=== PATIENT | female | born 1980 | race Caucasian/White ===

== ENCOUNTER 2017-01-10 19:32 | Emergency (ER) | payer BC, MEDICAID ==
[2017-01-10] MEDS ORDERED: Ondansetron 4 MG/2 ML SDV IVPUSH ONE (20:03)
[2017-01-10] MEDS ORDERED: Ketorolac 30 MG/ML SDV IVPUSH ONE (20:03)
[2017-01-10] MEDS ORDERED: diphenhydrAMINE 50 MG/ML SDV IVPUSH ONE (20:03)
[2017-01-10] MEDS ORDERED: Sodium Chloride 0.9% 1,000 ML IV SCH (20:15)
[2017-01-10 21:24] VITALS: BP 131/67
--- NOTE | 2017-01-10 21:41 | EDM.PDOC ---
ED HPI GENERAL MEDICAL PROBLEM - General Chief Complaint: Headache Stated Complaint: MIGRAINE Time Seen by Provider: 01/10/17 20:00 Source of Information: Reports: Patient History Limitations: Reports: No limitations - History of Present Illness INITIAL COMMENTS - FREE TEXT/NARRATIVE: migraine headache: this is a 36 y/o female presents emergency room with migraine headache for the past 2 days. she has nausea, vomiting, light and sound sensitivity. She reports return from her vacation in [place] for the past week, home Friday, lots of stress, which probably caused a headache. She denies any recent febrile illness, no exposures to strep or flu. Denies . Onset: gradual Onset Date: 01/09/17 Duration: Getting worse Quality: Reports: Same as previous episode Improves with: Reports: Cold therapy, Rest Worsens with: Reports: Movement Context: Reports: Other (migraine headache, similar to previous headaches) Associated Symptoms: Reports: headaches, loss of appetite, nausea/vomiting Headache Pain Score (Numeric/FACES): 1 - Related Data Allergies Allergy/AdvReac Type Severity Reaction Status Date / Time benzonatate Allergy Headache Verified 01/10/17 19:45 [From Derrick Hedz] morphine Allergy Headache Verified 01/10/17 19:45 Penicillins Allergy Rash Verified 01/10/17 19:45 Home Meds: Home Meds NK [No Known Home Meds] 01/10/17 [History] Past Medical History Gastrointestinal History: Reports: Cholelithiasis 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.) Occupation: employed ED ROS GENERAL - Review of Systems Review Of Systems: See Below Constitutional: Reports: other (migraine headache) HEENT: Reports: Eye pain (Light sensitivity) Respiratory: Reports: No Symptoms Cardiovascular: Reports: No symptoms Endocrine: Reports: no symptoms GI/Abdominal: Reports: No symptoms, Decreased appetite (Due to nausea and vomiting), Vomiting : Reports: no symptoms Musculoskeletal: Reports: no symptoms Skin: Reports: no symptoms Neurological: Reports: Headache Psychiatric: Reports: No symptoms Hematologic/Lymphatic: Reports: no symptoms Immunologic: Reports: no symptoms ED EXAM, GENERAL - Physical Exam Exam: See Below Exam Limited By: No limitations General Appearance: alert, WD/WN, moderate distress Eye Exam: bilateral eye: PERRL, other (light-sensitive) Ear Exam: bilateral ear: auricle normal, canal normal, TM normal Nose: normal inspection, normal mucosa, no blood Throat/Mouth: Normal inspection, Normal lips, Normal teeth, Normal gums, Normal oropharynx, Normal voice, No airway compromise Head: atraumatic, normocephalic Neck: normal inspection, supple, non-tender, full range of motion Respiratory/Chest: no respiratory distress, lungs clear, normal breath sounds, no accessory muscle use, chest non-tender Cardiovascular: normal peripheral pulses, regular rate, rhythm, no edema, no gallop, no JVD, no murmur, no rub Peripheral Pulses: 2+: radial (L), radial (R) GI/Abdominal: normal bowel sounds, soft, non tender, no organomegaly, no distention, no abnormal bruit, no mass Extremities: normal inspection, normal range of motion, non-tender, normal capillary refill, no pedal edema Neurological: alert, oriented, CN II-XII intact, normal cognition, normal gait, normal reflexes, no motor/sensory deficits Psychiatric: normal affect, normal mood Skin Exam: Warm, Dry, Intact, Normal color, No rash Lymphatic: no adenopathy Course - Vital Signs Last Recorded V/S: Last Vital Signs Temp 37.1 C 01/10/17 21:23 Pulse 60 01/10/17 21:23 Resp 16 01/10/17 21:23 BP 131/67 01/10/17 21:23 Pulse Ox 99 01/10/17 21:23 - Orders/Labs/Meds Orders: Active Orders 24 hr Category Date Time Status Sodium Chloride 0.9% [Normal Saline] 1,000 ml Med 01/10/17 20:15 Active IV ASDIRECTED Medication Orders Sodium Chloride (Normal Saline) 1,000 mls @ 999 mls/hr IV ASDIRECTED PHAN Last Admin: 01/10/17 20:24 Dose: 999 mls/hr Meds: Medications Generic Name Dose Route Start Last Admin Trade Name Freq PRN Reason Stop Dose Admin Sodium Chloride 1,000 mls @ 999 mls/hr 01/10/17 20:15 01/10/17 20:24 Normal Saline IV 999 mls/hr ASDIRECTED PHAN Administration Discontinued Medications Generic Name Dose Route Start Last Admin Trade Name Beatrice PRN Reason Stop Dose Admin Diphenhydramine HCl 25 mg 01/10/17 20:03 01/10/17 20:13 Benadryl IVPUSH 01/10/17 20:04 25 mg ONETIME ONE Administration Ketorolac Tromethamine 30 mg 01/10/17 20:03 01/10/17 20:13 Toradol IVPUSH 01/10/17 20:04 30 mg ONETIME ONE Administration Ondansetron HCl 4 mg 01/10/17 20:03 01/10/17 20:13 Zofran IVPUSH 01/10/17 20:04 4 mg ONETIME ONE Administration - Re-Assessments/Exams Free Text/Narrative Re-Assessment/Exam: 01/10/17 IV normal saline 1 L IV Toradol 10 mg IV Zofran 4 mg IV Benadryl 25 mg After IV medication and fluids, patient's headache resolved, ready for discharge to home Departure - Departure Time of Disposition: 21:54 Disposition: Home, Self-Care 01 Condition: good Clinical Impression: Migraine Instructions: Recurrent Migraine Headache, [id number] Referrals: PCP,None [Primary Care Provider] - Forms: ED Department Discharge Care Plan Goals: migraine headache -Given Toradol, Benadryl, and Zofran, in ER to relieve the headache -Advised to rest, push fluids, take medications as directed -scripts written for Toradol 10 mg one every 8 hours as needed for pain, Zofran 4 mg every 8 hours as needed for nausea and vomiting -may take [id number] Benadryl 25 mg as needed for headache Return to ER if symptoms return - Problem List & Annotations (1) Migraine SNOMED Code(s): 33874173 Code(s): G43.909 - MIGRAINE, UNSP, NOT INTRACTABLE, WITHOUT STATUS MIGRAINOSUS Status: Acute Priority: High Current Visit: Yes - Problem List Review Problem List Initiated/Reviewed/Updated: Yes - My Orders Last 24 Hours: My Active Orders 01/10/17 20:15 Sodium Chloride 0.9% [Normal Saline] 1,000 ml IV ASDIRECTED - Assessment/Plan Last 24 Hours: My Active Orders 01/10/17 20:15 Sodium Chloride 0.9% [Normal Saline] 1,000 ml IV ASDIRECTED Plan: migraine headache -Given Toradol, Benadryl, and Zofran, in ER to relieve the headache; headache resolved. -Advised to rest, push fluids, take medications as directed -scripts written for Toradol 10 mg one every 8 hours as needed for pain, Zofran 4 mg every 8 hours as needed for nausea and vomiting -may take [id number] Benadryl 25 mg as needed for headache Return to ER if symptoms return
== END 2017-01-10 21:53 | disposition home or self-care (01) ==
LOC: JP.ED 19:32
DX: G43.909 Migraine, unspecified, not intractable, without status migrainosus (principal); Z88.0 Allergy status to penicillin; Z88.5 Allergy status to narcotic agent; Z88.8 Allergy status to other drugs, medicaments and biological substances
CPT/HCPCS: 96361; 96374; 96375; 99283; J1200; J1885; J2405; J7040

== ENCOUNTER 2022-04-21 00:19 | Emergency (ER) | payer OTHER ==
[2022-04-21] MEDS ORDERED: Sodium Chloride 0.9% 10 ML Syringe FLUSH PRN (00:37)
[2022-04-21] MEDS ORDERED: Dexamethasone 4 MG/ML SDV IVPUSH ONE (00:37)
[2022-04-21] MEDS ORDERED: diphenhydrAMINE 50 MG/ML SDV IVPUSH ONE (00:37)
[2022-04-21] MEDS ORDERED: Ketorolac 30 MG/ML SDV IVPUSH ONE (00:37)
[2022-04-21] MEDS ORDERED: Prochlorperazine 10 MG/2 ML SDV IVPUSH ONE (00:37)
[2022-04-21] MEDS ORDERED: Sodium Chloride 0.9% 1,000 ML IV SCH (00:45)
[2022-04-21 00:46] VITALS: BP 125/74; PULSE 57
== END 2022-04-21 02:30 | disposition home or self-care (01) ==
LOC: JP.ED 00:19
DX: G43.119 Migraine with aura, intractable, without status migrainosus (principal); Z88.0 Allergy status to penicillin; Z88.5 Allergy status to narcotic agent; Z88.8 Allergy status to other drugs, medicaments and biological substances
CPT/HCPCS: 96361; 96374; 96375; 99283-25; 99284; J0780; J1100; J1200; J1885; J3490; J7030

== ENCOUNTER 2024-07-12 20:22 | Emergency (ER) | payer OTHER, MEDICAID ==
[2024-07-12 20:41] VITALS: BP 134/87; PULSE 66
[2024-07-12] MEDS: Ondansetron 4 MG Tab.DIS PO ONE (21:03)
[2024-07-12] MEDS: Sodium Chloride 0.9% 1,000 ML IV SCH (21:04)
[2024-07-12] MEDS: diphenhydrAMINE 50 MG/ML SDV IVPUSH ONE (21:11)
[2024-07-12] MEDS: Dexamethasone 4 MG/ML SDV IVPUSH ONE (21:15)
[2024-07-12] MEDS: Prochlorperazine 10 MG/2 ML SDV IVPUSH ONE (21:15)
[2024-07-12] MEDS: Ketorolac 30 MG/ML SDV IVPUSH ONE (21:19)
== END 2024-07-12 22:05 | disposition home or self-care (01) ==
LOC: JP.ED 20:22
DX: G43.119 Migraine with aura, intractable, without status migrainosus (principal); Z88.0 Allergy status to penicillin; Z88.8 Allergy status to other drugs, medicaments and biological substances; Z88.5 Allergy status to narcotic agent
CPT/HCPCS: 96361; 96374; 96375; 99283; J0780; J1100; J1200; J1885; J7030; Q0162

== ENCOUNTER 2025-09-07 19:27 | Emergency (ER) | payer MEDICAID ==
[2025-09-07] MEDS: diphenhydrAMINE 50 MG/ML SDV IVPUSH ONE (20:38)
[2025-09-07] MEDS: Ketorolac 30 MG/ML SDV IVPUSH ONE (20:42)
[2025-09-07] MEDS: Ondansetron 4 MG/2 ML SDV IVPUSH ONE (20:43)
[2025-09-07 21:40] VITALS: BP 107/41; PULSE 77
== END 2025-09-07 21:53 | disposition home or self-care (01) ==
LOC: JP.ED 19:27
DX: G43.909 Migraine, unspecified, not intractable, without status migrainosus (principal); Z88.0 Allergy status to penicillin; Z88.8 Allergy status to other drugs, medicaments and biological substances; Z79.899 Other long term (current) drug therapy
CPT/HCPCS: 96361; 96374; 96375; 99283; J1200; J1885; J2405; J7030